=== PATIENT | female | born 1970 | race Caucasian/White ===

== ENCOUNTER 2020-11-15 22:21 | Emergency (ER) | payer MEDICAID ==
[~2020-11-15] VITALS: Ht 160 cm; Wt 52.2 kg
--- NOTE | 2020-11-15 22:59 | NUR ---
COVID SWAB COLLECTED AND SENT TO LAB
--- NOTE | 2020-11-15 23:31 | NUR ---
REC'D POSITIVE COVID RESULTS. AWARE
--- NOTE | 2020-11-15 23:46 | NUR ---
Patient discharged to home in stable condition. Written and verbal after care instructions given. Patient verbalizes understanding of instruction.
[2020-11-15 23:47] VITALS: BP 108/74
== END 2020-11-15 23:48 | disposition home or self-care (01) ==
LOC: ER 22:21
DX: U07.1 COVID-19 (principal); J02.9 Acute pharyngitis, unspecified
CPT/HCPCS: 71045; 87426; 93005; 99285; C9803